=== PATIENT | female | born 1935 | race Caucasian/White ===

== ENCOUNTER 2021-02-13 15:42 | Emergency (ER) | payer BC ==
[2021-02-13] MEDS ORDERED: LEVOTHYROXIN0.075 MG PO (15:53)
[2021-02-13] MEDS ORDERED: ATENOLOL25 MG PO (15:53)
[2021-02-13] MEDS ORDERED: LORAZEPAM1 M1 PO (15:53)
[2021-02-13] MEDS ORDERED: ROPINIROLE HYDRO2 MG PO (15:54)
[2021-02-13] MEDS ORDERED: PERCOCET 325 MG1 TA2 PO (15:54)
[2021-02-13 16:30] LABS: BASO # 0.03 (0.02-0.10); EOS # 0.22 (0.04-0.40); EOS % 7.9 % (1.0-5.0); HEMATOCRIT 39.6 % (37.0-47.0); HEMOGLOBIN 13.5 g/dL (12.5-16.0); LYMPH# 1.02 (1.50-4.00); MEAN CELL VOLUME 95 fl (78-100); MEAN CORPUSCULAR HEMOGLOBIN 32 pg (27-31); MEAN CORPUSCULAR HGB CONC 34 g/dL (33-37); MEAN PLATELET VOLUME 10.7 fl (7.4-10.4); MONO # 0.45 (0.20-0.80); NEU # 1.08 (1.40-6.50); PLATELET COUNT 131 K/mm3 (130-400); RED BLOOD COUNT 4.18 M/mm3 (4.10-5.30); WHITE BLOOD COUNT 2.8 K/mm3 (4.8-10.8)
[2021-02-13 16:36] LABS: ALBUMIN 4.2 g/dL (3.4-4.8)
[2021-02-13 16:37] LABS: CALCIUM 9.2 mg/dL (8.3-10.5)
[2021-02-13 16:38] LABS: TOTAL PROTEIN 6.6 g/dL (6.2-8.1)
[2021-02-13 16:40] LABS: TOTAL BILIRUBIN 0.7 mg/dL (0.2-1.2)
[2021-02-13 16:46] LABS: URINE APPEARANCE CLEAR; URINE COLOR LIGHT YELLOW
[2021-02-13 16:47] LABS: PH-URINE 6.5 (5.0 - 8.0); URINE BILIRUBIN NEGATIVE (NEGATIVE); URINE BLOOD TRACE (NEGATIVE); URINE GLUCOSE NEGATIVE (NEGATIVE); URINE KETONE NEGATIVE (NEGATIVE); URINE LEUKOCYTE ESTERASE NEGATIVE (NEGATIVE); URINE NITRATE NEGATIVE (NEGATIVE); URINE PROTEIN(semi-quant) TRACE mg/dL (NEGATIVE); URINE UROBILINOGEN NORMAL (NORMAL); URINE WBC 0-1 /hpf (0-3)
[2021-02-13 17:58] VITALS: BP 172/86
== END 2021-02-13 17:58 | disposition home or self-care (01) ==
LOC: ED 15:42
PROVIDERS: Nurse Practitioner
DX: R53.81 Other malaise (principal); R53.83 Other fatigue; G89.29 Other chronic pain; M54.9 Dorsalgia, unspecified; F17.200 Nicotine dependence, unspecified, uncomplicated; Z20.822 Contact with and (suspected) exposure to COVID-19; Z87.440 Personal history of urinary (tract) infections
CPT/HCPCS: J7030

== ENCOUNTER 2021-02-24 15:59 | Outpatient (RCR) | payer BC ==
[2021-02-17 17:13] VITALS: BP 167/63
[2021-02-18 16:35] VITALS: BP 126/67
[2021-02-19 16:19] VITALS: BP 172/75
[2021-02-21 16:37] VITALS: BP 169/68
--- NOTE | 2021-02-22 13:27 | NUR ---
CALLS TO INFORM THAT IV SITE WAS IRRITATED AND NEEDED TO BE REMOVED. 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 REQUESTS FOR IV START DAILY WITH DISCONTINUATION AFTER PERSONAL VEHICLE ADVISOR DAILY.
[2021-02-22 16:37] VITALS: BP 159/82
[2021-02-23 16:35] VITALS: BP 142/66
[~2021-02-24] VITALS: Ht 170.2 cm; Wt 46.8 kg
[~2021-02-24 15:59] MED LIST: ATENOLOL25 MG PO; LEVOTHYROXIN0.075 MG PO; LORAZEPAM1 M1 PO; PERCOCET 325 MG1 TA2 PO; ROPINIROLE HYDRO2 MG PO
[2021-02-24 16:39] VITALS: BP 126/58
== END 2021-02-24 19:00 | disposition home or self-care (01) ==
LOC: AMSURD 15:59
DX: N30.81 Other cystitis with hematuria (principal); B96.5 Pseudomonas (aeruginosa) (mallei) (pseudomallei) as the cause of diseases classified elsewhere
CPT/HCPCS: J0713

== ENCOUNTER 2021-05-10 07:44 | Emergency (ER) | payer BC ==
[2021-05-10 08:21] LABS: ALBUMIN 3.9 g/dL (3.4-4.8)
[2021-05-10 08:22] LABS: SODIUM 136 mmol/L (136-145)
[2021-05-10 08:23] LABS: CALCIUM 9.5 mg/dL (8.3-10.5)
[2021-05-10 08:24] LABS: GLUCOSE 91 mg/dL (65-105); TOTAL PROTEIN 6.2 g/dL (6.2-8.1)
[2021-05-10 08:25] LABS: CARBON DIOXIDE 24 mmol/L (23-31)
[2021-05-10 08:26] LABS: TOTAL BILIRUBIN 0.8 mg/dL (0.2-1.2)
[2021-05-10 08:28] LABS: HEMATOCRIT 40.4 % (37.0-47.0); HEMOGLOBIN 13.3 g/dL (12.5-16.0); MEAN CELL VOLUME 98 fl (78-100); MEAN CORPUSCULAR HEMOGLOBIN 32 pg (27-31); MEAN CORPUSCULAR HGB CONC 33 g/dL (33-37); MEAN PLATELET VOLUME 11.4 fl (7.4-10.4); PLATELET COUNT 109 K/mm3 (130-400); RED BLOOD COUNT 4.13 M/mm3 (4.10-5.30); RED CELL DISTRIBUTION WIDTH 12.4 % (11.5-14.5); WHITE BLOOD COUNT 2.5 K/mm3 (4.8-10.8)
[2021-05-10 08:29] LABS: ALCOHOL IN-HOUSE < 10 mg/dL (<10); AST-SGOT 23 U/L (5-34)
[2021-05-10 08:31] LABS: ALT/SGPT 13 U/L (0-55)
[2021-05-10 08:41] LABS: URINE APPEARANCE CLEAR; URINE BILIRUBIN NEGATIVE (NEGATIVE); URINE BLOOD NEGATIVE (NEGATIVE); URINE COLOR YELLOW; URINE GLUCOSE NEGATIVE (NEGATIVE); URINE KETONE NEGATIVE (NEGATIVE); URINE LEUKOCYTE ESTERASE NEGATIVE (NEGATIVE); URINE NITRATE NEGATIVE (NEGATIVE); URINE PROTEIN(semi-quant) TRACE mg/dL (NEGATIVE); URINE UROBILINOGEN NORMAL (NORMAL); URINE WBC 0-1 /hpf (0-3)
[2021-05-10 08:54] LABS: BAND 3 % (0-10); LYMPHOCYTE 40 % (20-51); MONOCYTE 16 % (3-10); NEUTROPHILS 36 % (42-75)
[2021-05-10 10:51] VITALS: BP 145/64
== END 2021-05-10 10:45 | disposition home or self-care (01) ==
LOC: ED 07:44
PROVIDERS: Nurse Practitioner
DX: F13.10 Sedative, hypnotic or anxiolytic abuse, uncomplicated (principal); E03.9 Hypothyroidism, unspecified; F17.210 Nicotine dependence, cigarettes, uncomplicated; Z79.890 Hormone replacement therapy

== ENCOUNTER 2021-09-13 11:26 | Emergency (ER) | payer BC ==
[2021-09-13] MEDS ORDERED: SYNTHROID25 MCG PO (11:37)
[2021-09-13] MEDS ORDERED: ONDANSETRON HYDR4 MG PO (11:38)
[2021-09-13 12:09] LABS: BASO # 0.01 K/mm3 (0.02-0.10); EOS # 0.13 K/mm3 (0.04-0.40); EOS % 4.1 % (1.0-5.0); HEMATOCRIT 43.5 % (37.0-47.0); LYMPH# 0.99 K/mm3 (1.50-4.00); MEAN CELL VOLUME 95 fl (78-100); MEAN CORPUSCULAR HEMOGLOBIN 33 pg (27-31); MEAN CORPUSCULAR HGB CONC 35 g/dL (33-37); MEAN PLATELET VOLUME 11.1 fl (7.4-10.4); MONO # 0.44 K/mm3 (0.20-0.80); NEU # 1.56 K/mm3 (1.40-6.50); PLATELET COUNT 104 K/mm3 (130-400); RED CELL DISTRIBUTION WIDTH 12.3 % (11.5-14.5); WHITE BLOOD COUNT 3.1 K/mm3 (4.8-10.8)
[2021-09-13 12:18] LABS: ALBUMIN 4.6 g/dL (3.4-4.8); POTASSIUM 4.1 mmol/L (3.5-5.1)
[2021-09-13 12:20] LABS: CALCIUM 9.3 mg/dL (8.3-10.5)
[2021-09-13 12:21] LABS: TOTAL PROTEIN 7.4 g/dL (6.2-8.1)
[2021-09-13 12:23] LABS: TOTAL BILIRUBIN 0.6 mg/dL (0.2-1.2)
[2021-09-13 15:39] LABS: PH-URINE 6.5 (5.0 - 8.0); URINE APPEARANCE CLEAR; URINE BILIRUBIN NEGATIVE (NEGATIVE); URINE BLOOD TRACE (NEGATIVE); URINE COLOR YELLOW; URINE GLUCOSE NEGATIVE (NEGATIVE); URINE KETONE NEGATIVE (NEGATIVE); URINE LEUKOCYTE ESTERASE 1+ (NEGATIVE); URINE NITRATE NEGATIVE (NEGATIVE); URINE PROTEIN(semi-quant) 1+ (NEGATIVE); URINE UROBILINOGEN NORMAL (NORMAL)
[2021-09-13] MEDS ORDERED: NORCO 325 MG-51 TA1 PO (18:36)
[2021-09-13] MEDS ORDERED: LORAZEPAM0.5 M1 PO (18:36)
[2021-09-13 18:50] VITALS: BP 136/60
== END 2021-09-13 18:55 | disposition home or self-care (01) ==
LOC: ED 11:26
PROVIDERS: Family Medicine
DX: R05.9 Cough, unspecified (principal)
CPT/HCPCS: J7120; Q9967

== ENCOUNTER → 2021-10-30 | Outpatient (CLI) | payer BC ==
[~2021-10-30] MED LIST changes: +LORAZEPAM0.5 M1 PO; +NORCO 325 MG-51 TA1 PO; +ONDANSETRON HYDR4 MG PO; +SYNTHROID25 MCG PO
[2021-10-30 12:43] LABS: BASO # 0.02 K/mm3 (0.02-0.10); EOS # 0.13 K/mm3 (0.04-0.40); EOS % 3.2 % (1.0-5.0); HEMATOCRIT 44.5 % (37.0-47.0); HEMOGLOBIN 14.7 g/dL (12.5-16.0); LYMPH# 1.29 K/mm3 (1.50-4.00); MEAN CELL VOLUME 99 fl (78-100); MEAN CORPUSCULAR HEMOGLOBIN 33 pg (27-31); MEAN CORPUSCULAR HGB CONC 33 g/dL (33-37); MEAN PLATELET VOLUME 9.8 fl (7.4-10.4); MONO # 0.78 K/mm3 (0.20-0.80); NEU # 1.87 K/mm3 (1.40-6.50); PLATELET COUNT 141 K/mm3 (130-400); RED BLOOD COUNT 4.51 M/mm3 (4.10-5.30); RED CELL DISTRIBUTION WIDTH 13.6 % (11.5-14.5); WHITE BLOOD COUNT 4.1 K/mm3 (4.8-10.8)
[2021-10-30 13:00] LABS: ALBUMIN 4.6 g/dL (3.4-4.8); POTASSIUM 4.4 mmol/L (3.5-5.1)
[2021-10-30 13:01] LABS: CALCIUM 9.8 mg/dL (8.3-10.5)
[2021-10-30 13:03] LABS: TOTAL PROTEIN 7.2 g/dL (6.2-8.1)
[2021-10-30 13:04] LABS: TOTAL BILIRUBIN 1.2 mg/dL (0.2-1.2)
== END ==
LOC: LAB 12:21
PROVIDERS: Internal Medicine
DX: F41.1 Generalized anxiety disorder (principal); E03.9 Hypothyroidism, unspecified; R10.13 Epigastric pain; K90.9 Intestinal malabsorption, unspecified

== ENCOUNTER → 2021-11-13 | Outpatient (CLI) | payer BC | LOC: LAB 15:37 | DX: E03.9 Hypothyroidism, unspecified (principal); F41.1 Generalized anxiety disorder; K90.9 Intestinal malabsorption, unspecified ==

== ENCOUNTER → 2022-01-01 | Outpatient (CLI) | payer BC | LOC: LAB 08:13 | DX: F41.1 Generalized anxiety disorder (principal); E03.9 Hypothyroidism, unspecified; R10.13 Epigastric pain; K90.9 Intestinal malabsorption, unspecified; L98.9 Disorder of the skin and subcutaneous tissue, unspecified; R19.4 Change in bowel habit; M15.9 Polyosteoarthritis, unspecified ==

== ENCOUNTER → 2022-02-12 | Outpatient (CLI) | payer BC ==
[2022-02-13 08:59] LABS: URINE APPEARANCE CLEAR; URINE COLOR YELLOW
[2022-02-13 09:00] LABS: URINE BILIRUBIN NEGATIVE (NEGATIVE); URINE BLOOD TRACE (NEGATIVE); URINE GLUCOSE NEGATIVE (NEGATIVE); URINE KETONE NEGATIVE (NEGATIVE); URINE LEUKOCYTE ESTERASE NEGATIVE (NEGATIVE); URINE NITRATE NEGATIVE (NEGATIVE); URINE PROTEIN(semi-quant) 1+ (NEGATIVE); URINE UROBILINOGEN NORMAL (NORMAL)
== END ==
LOC: LAB 13:15
PROVIDERS: Internal Medicine
DX: R30.9 Painful micturition, unspecified (principal)

== ENCOUNTER → 2022-04-14 | Outpatient (CLI) | payer BC ==
[2022-04-14 14:33] LABS: URINE WBC 0 /hpf (0-3)
[2022-04-14 15:53] LABS: URINE APPEARANCE CLEAR; URINE BILIRUBIN NEGATIVE (NEGATIVE); URINE BLOOD NEGATIVE (NEGATIVE); URINE COLOR YELLOW; URINE GLUCOSE NEGATIVE (NEGATIVE); URINE KETONE NEGATIVE (NEGATIVE); URINE LEUKOCYTE ESTERASE NEGATIVE (NEGATIVE); URINE MUCUS PRESENT (NOT PRESENT); URINE NITRATE NEGATIVE (NEGATIVE); URINE PROTEIN(semi-quant) TRACE (NEGATIVE); URINE UROBILINOGEN NORMAL (NORMAL)
== END ==
LOC: LAB 14:24
PROVIDERS: Internal Medicine
DX: F41.1 Generalized anxiety disorder (principal); E03.9 Hypothyroidism, unspecified; K90.9 Intestinal malabsorption, unspecified; L98.9 Disorder of the skin and subcutaneous tissue, unspecified; M15.9 Polyosteoarthritis, unspecified; M54.16 Radiculopathy, lumbar region; M48.061 Spinal stenosis, lumbar region without neurogenic claudication; R19.4 Change in bowel habit; R07.89 Other chest pain; T85.628D Displacement of other specified internal prosthetic devices, implants and grafts, subsequent encounter; N39.0 Urinary tract infection, site not specified

== ENCOUNTER → 2022-09-24 | Outpatient (CLI) | payer BC ==
[2022-09-24 12:28] LABS: HEMATOCRIT 35.7 % (37.0-47.0); MEAN CELL VOLUME 104 fl (78-100); MEAN CORPUSCULAR HEMOGLOBIN 35 pg (27-31); MEAN CORPUSCULAR HGB CONC 34 g/dL (33-37); MEAN PLATELET VOLUME 10.3 fl (7.4-10.4); PLATELET COUNT 184 K/mm3 (130-400); RED BLOOD COUNT 3.44 M/mm3 (4.10-5.30); RED CELL DISTRIBUTION WIDTH 11.4 % (11.5-14.5); WHITE BLOOD COUNT 2.7 K/mm3 (4.8-10.8)
[2022-09-24 12:29] LABS: ALBUMIN 4.1 g/dL (3.4-4.8)
[2022-09-24 12:30] LABS: POTASSIUM 4.2 mmol/L (3.5-5.1)
[2022-09-24 12:31] LABS: CALCIUM 9.3 mg/dL (8.3-10.5)
[2022-09-24 12:32] LABS: TOTAL PROTEIN 6.2 g/dL (6.2-8.1)
[2022-09-24 12:34] LABS: TOTAL BILIRUBIN 0.5 mg/dL (0.2-1.2)
[2022-09-24 13:33] LABS: LYMPHOCYTE 62 % (20-51); NEUTROPHILS 24 % (42-75)
[2022-09-24 13:34] LABS: MONOCYTE 13 % (3-10)
== END ==
LOC: LAB 12:11
PROVIDERS: Internal Medicine
DX: M48.061 Spinal stenosis, lumbar region without neurogenic claudication (principal); R10.84 Generalized abdominal pain; F41.1 Generalized anxiety disorder; G89.29 Other chronic pain; E03.9 Hypothyroidism, unspecified; R11.2 Nausea with vomiting, unspecified; T14.8XXA Other injury of unspecified body region, initial encounter; X58.XXXA Exposure to other specified factors, initial encounter

== ENCOUNTER → 2023-04-13 | Outpatient (CLI) | payer BC ==
[2023-04-13 12:23] LABS: HEMATOCRIT 34.1 % (37.0-47.0); HEMOGLOBIN 11.6 g/dL (12.5-16.0); MEAN CELL VOLUME 99 fl (78-100); MEAN CORPUSCULAR HEMOGLOBIN 34 pg (27-31); MEAN CORPUSCULAR HGB CONC 34 g/dL (33-37); MEAN PLATELET VOLUME 10.1 fl (7.4-10.4); PLATELET COUNT 164 K/mm3 (130-400); RED BLOOD COUNT 3.43 M/mm3 (4.10-5.30); RED CELL DISTRIBUTION WIDTH 11.8 % (11.5-14.5); WHITE BLOOD COUNT 3.2 K/mm3 (4.8-10.8)
[2023-04-13 12:30] LABS: POTASSIUM 4.8 mmol/L (3.5-5.1)
[2023-04-13 12:31] LABS: CALCIUM 9.1 mg/dL (8.3-10.5)
[2023-04-13 12:32] LABS: TOTAL PROTEIN 6.4 g/dL (6.2-8.1)
[2023-04-13 12:34] LABS: TOTAL BILIRUBIN 0.5 mg/dL (0.2-1.2)
[2023-04-13 14:32] LABS: BASO # 0.03 K/mm3 (0.02-0.10); EOS % 6.3 % (1.0-5.0); MONO # 0.49 K/mm3 (0.20-0.80); NEU # 1.52 K/mm3 (1.40-6.50)
== END ==
LOC: LAB 12:04
PROVIDERS: Internal Medicine
DX: M48.061 Spinal stenosis, lumbar region without neurogenic claudication (principal); E03.9 Hypothyroidism, unspecified; F41.1 Generalized anxiety disorder; B35.1 Tinea unguium; F51.04 Psychophysiologic insomnia; M54.16 Radiculopathy, lumbar region; D72.820 Lymphocytosis (symptomatic); R11.2 Nausea with vomiting, unspecified; R10.84 Generalized abdominal pain; G89.29 Other chronic pain